=== PATIENT | male | born 1950 | race Hispanic/Latino ===

== ENCOUNTER → 2017-12-14 | Outpatient (CLI) | payer OTHER ==
[~2017-12-14] MED LIST: ATOR40TA69 PO; CHOL200026 PO; DIGO125T87 PO; FURO80TA3 PO; HONEY 1 APPL/ML TUBE TP ONE; LIDOCAINE/PRILOCAINE CREAM 5GM TUBE TP ONE; LOSA25TA21 PO; METO-409 PO; NOVOLOG 70/30 SQ; SILVER NITRATE APPLICATOR 1 SWAB TP ONE; SPIR25TA4 PO; WARF-57 PO; WARF7.5T49 PO
[2017-12-14 18:02] VITALS: BP 89/57
== END | disposition home or self-care (01) ==
LOC: WHH 14:00
PROVIDERS: ATTEND Family Medicine
DX: S81.002D Unspecified open wound, left knee, subsequent encounter (principal); K74.60 Unspecified cirrhosis of liver; I73.9 Peripheral vascular disease, unspecified; I48.91 Unspecified atrial fibrillation; I44.7 Left bundle-branch block, unspecified; E26.9 Hyperaldosteronism, unspecified; G47.33 Obstructive sleep apnea (adult) (pediatric); E78.5 Hyperlipidemia, unspecified; E11.22 Type 2 diabetes mellitus with diabetic chronic kidney disease; I13.0 Hypertensive heart and chronic kidney disease with heart failure and stage 1 through stage 4 chronic kidney disease, or unspecified chronic kidney disease; D63.1 Anemia in chronic kidney disease; N18.3 Chronic kidney disease, stage 3 (moderate); I50.43 Acute on chronic combined systolic (congestive) and diastolic (congestive) heart failure; K72.90 Hepatic failure, unspecified without coma; L40.9 Psoriasis, unspecified; E11.42 Type 2 diabetes mellitus with diabetic polyneuropathy; E11.51 Type 2 diabetes mellitus with diabetic peripheral angiopathy without gangrene; D12.6 Benign neoplasm of colon, unspecified; J90 Pleural effusion, not elsewhere classified; I85.00 Esophageal varices without bleeding; L40.8 Other psoriasis; R74.8 Abnormal levels of other serum enzymes; K74.69 Other cirrhosis of liver; M21.962 Unspecified acquired deformity of left lower leg; M21.961 Unspecified acquired deformity of right lower leg; Z86.73 Personal history of transient ischemic attack (TIA), and cerebral infarction without residual deficits; Z79.01 Long term (current) use of anticoagulants; X58.XXXD Exposure to other specified factors, subsequent encounter
CPT/HCPCS: 11042; 36415; 84134; 85651; 86141; 87070; A4450; G0463; J3490